=== PATIENT | female | born 2000 | race Caucasian/White ===

== ENCOUNTER 2021-05-09 04:30 | Emergency (ER) | payer BC, MEDICAID ==
[~2021-05-09] VITALS: Ht 157.5 cm; Wt 77.2 kg
[2021-05-09 04:38] VITALS: BP 155/85
--- NOTE | 2021-05-09 04:59 | PHYS DOC ---
Past Medical History Past Medical History: No Pertinent History Past Surgical History: Other Additional Past Surgical Histo: dental Smoking Status: Never Smoker Alcohol Use: None Drug Use: None General Adult EDM: Chief Complaint: SHOULDER INJURY HPI: HPI: Patient is a 20 year old female who present to ER due to right shoulder pain. Patient says he was at picking up her 35 pounds nephew out of a car seat today, heard a pop on her right shoulder, having pain there since. Patient denies any previous injury of her right shoulder. Patient denies any numbness or weakness in her right upper extremity. Patient complains of pain in her right shoulder with movement. Review of Systems: Review of Systems: Constitutional: Denies fever or chills. [] Eyes: Denies change in visual acuity. [] HENT: Denies nasal congestion or sore throat. [] Respiratory: Denies cough or shortness of breath. [] Cardiovascular: Denies chest pain or edema. [] GI: Denies abdominal pain, nausea, vomiting, bloody stools or diarrhea. [] : Denies dysuria. [] Musculoskeletal: Positive for right shoulder pain Integument: Denies rash. [] Neurologic: Denies headache, focal weakness or sensory changes. [] Endocrine: Denies polyuria or polydipsia. [] Lymphatic: Denies swollen glands. [] Psychiatric: Denies depression or anxiety. [] Heart Score: C/O Chest Pain: N/A Risk Factors: Risk Factors: DM, Current or recent (<one month) smoker, HTN, HLP, family hist ory of CAD, obesity. Risk Scores: Score 0 - 3: 2.5% MACE over next 6 weeks - Discharge Home Score 4 - 6: 20.3% MACE over next 6 weeks - Admit for Clinical Observation Score 7 - 10: 72.7% MACE over next 6 weeks - Early Invasive Strategies Allergies: Allergies: Allergies Coded Allergies Type Severity Reaction Last Updated Verified No Known Drug Allergies 01/29/14 No Physical Exam: PE: Constitutional: Well developed, well nourished, no acute distress, non-toxic appearance. [] HENT: Normocephalic, atraumatic, bilateral external ears normal, oropharynx moist, no oral exudates, nose normal. [] Eyes: PERRLA, EOMI, conjunctiva normal, no discharge. [] Neck: Normal range of motion, no tenderness, supple, no stridor. [] Cardiovascular:Heart rate regular rhythm, no murmur [] Lungs & Thorax: Bilateral breath sounds clear to auscultation [] Abdomen: Bowel sounds normal, soft, no tenderness, no masses, no pulsatile masses. [] Skin: Warm, dry, no erythema, no rash. [] Back: No tenderness, no CVA tenderness. [] Extremities: Right shoulder with full range of motion but tender to palpation [] Neurologic: Alert and oriented X 3, normal motor function, normal sensory funct ion, no focal deficits noted. [] Psychologic: Affect normal, judgement normal, mood normal. [] Current Patient Data: Vital Signs: Vital Signs Date Time Temp Pulse Resp B/P (MAP) Pulse Ox O2 Delivery O2 Flow Rate FiO2 05/09/21 04:38 97.8 92 20 155/85 (108) 96 Room Air 97.8 EKG: EKG: [] Radiology/Procedures: Radiology/Procedures: [] Course & Med Decision Making: Course & Med Decision Making Pertinent Labs and Imaging studies reviewed. (See chart for details) [] Dragon Disclaimer: Zhui Xin Disclaimer: This electronic medical record was generated, in whole or in part, using a voice recognition dictation system. Departure Departure Impression: Primary Impression: Sprain of shoulder, right Disposition: 01 HOME / SELF CARE / HOMELESS Condition: STABLE Referrals: AJIT SUGGS MD (PCP) Follow up with your doctor for outpatient MRI of your right shoulder next week if you continue to have pain. Patient Instructions: Shoulder Sprain Additional Instructions: Thank you for visiting our Emergency Department. We appreciate you trusting us with your care. If any additional problems come up don't hesitate to return to visit us. Please follow up with your primary care provider so they can plan additional care if needed and know about the problem that you had. If symptoms worsen come back to the Emergency Department. Any concerning symptoms that start such as chest pain, shortness of air, weakness or numbness on one side of the body, running high fevers or any other concerning symptoms return to the ER. Scripts Ibuprofen (IBUPROFEN) 800 Mg Tablet 800 MG PO PRN Q6HRS PRN for PAIN MDD 20, #30 TAB Prov: SUDHIR LEW DO 05/09/21 SUDHIR LEW DO May 09, 2021 04:59
[2021-05-09] MEDS ORDERED: IBUP-1060 PO (05:24)
--- NOTE | 2021-05-09 05:28 | RAD ---
XR SHOULDER_RIGHT 2+ VIEWS DATE: 05/09/2021 5:08 AM INDICATION: RIGHT SHOULDER INJURED COMPARISON: None. FINDINGS: Bones: There is no evidence of acute fracture or dislocation. Joints: The joint spaces are normal. The acromiohumeral distance is not narrowed. Miscellaneous: No abnormal soft tissue calcifications in the shoulder. IMPRESSION: No evidence of acute fracture. Electronically signed by: Shakir Florez MD (05/09/2021 5:26 AM) IVETTE
== END 2021-05-09 05:33 | disposition home or self-care (01) ==
LOC: ER 04:30
DX: S43.401A Unspecified sprain of right shoulder joint, initial encounter (principal); X50.9XXA Other and unspecified overexertion or strenuous movements or postures, initial encounter; Y93.89 Activity, other specified; Y92.89 Other specified places as the place of occurrence of the external cause; Y99.8 Other external cause status
CPT/HCPCS: 73030; 99283

== ENCOUNTER 2021-07-04 02:11 | Emergency (ER) | payer BC, MEDICAID ==
[~2021-07-04] VITALS: Ht 157.5 cm; Wt 77.3 kg
[~2021-07-04 02:11] MED LIST: IBUP-1060 PO
--- NOTE | 2021-07-04 02:30 | PHYS DOC ---
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, denies any headache or neck stiffness/photophobia, cough not productive, she is unfortunately not vaccinated to coronavirus 20, no known history of cardiac disease or history of thromboembolism Review of Systems: Review of Systems: General: positive for fevers, no chills Eyes: no blurred vision, no diplopia Skin: no rashes Neck: no swelling, no neck stiffness, no neck pain Heme: no bleeding, no lymph node enlargement Ear/Nose/Throat: No sore throat, no runny nose, no hearing loss, no difficulty swallowing Cardiovascular: no Chest pain, no palpitations Respiratory: No dyspnea, + cough, no hemoptysis Gastrointestinal: No abdominal pain, + nausea, + vomiting, + diarrhea, no blood in stool Genitourinary: no dysuria, no hematuria Musculoskeletal: no back pain, no leg pain, no arm pain, no arthralgia Neurologic: no headaches, no dizziness, no focal numbness/tingling, no focal weakness Psych: no depression, no anxiety, no SI/HI *All review of systems are negative other than what is noted above Heart Score: C/O Chest Pain: No Risk Factors: Risk Factors: DM, Current or recent (<one month) smoker, HTN, HLP, family h istory of CAD, obesity. Risk Scores: Score 0 - 3: 2.5% MACE over next 6 weeks - Discharge Home Score 4 - 6: 20.3% MACE over next 6 weeks - Admit for Clinical Observation Score 7 - 10: 72.7% MACE over next 6 weeks - Early Invasive Strategies Current Medications: Current Medications Medications (Trade) Dose Ordered Sig/Tylor Start Time Stop Time Status Last Admin Dose Admin Dexamethasone (Decadron) 10 mg 1X ONCE 07/04/21 02:30 07/04/21 02:31 UNV Ibuprofen (Motrin) 800 mg 1X ONCE 07/04/21 02:30 07/04/21 02:31 UNV Ondansetron HCl (Zofran Odt) 4 mg 1X ONCE 07/04/21 02:30 07/04/21 02:31 UNV Allergies: Allergies: Allergies Coded Allergies Type Severity Reaction Last Updated Verified No Known Drug Allergies 01/29/14 No Physical Exam: PE: Gen-well appearing, no acute distress Head: Normocephalic/Atraumatic ENT: atraumatic, PERRLA, EOMI, oropharynx clear Neck: supple, full ROM/strength, no JVD, no nuchal rigidity Lungs: no distress, speaks in full sentences, Clear to auscultation bilaterally CV: reg rate, rhythm, no murmus/rubs/gallops, peripheral pulses equal in all extremities Abdomen: soft/nontender, no guarding/rebound tenderness, no rigidity, non distended, normoactive bowel sounds Musculoskeletal: full ROM/strength in all extremities, atraumatic, no swelling Back: full range of motion/strength Skin: intact, no rashes Lymph: no gross JHONATHAN Neuro: alert and oriented x 4, CN 2-12 grossly intact, Motor strength is 5/5 in all extremities, no focal sensory deficits, no focal ataxia, ambulatory with steady gait Psych: normal mood/affect EKG: EKG: [] Radiology/Procedures: Radiology/Procedures: [] Course & Med Decision Making: Course & Med Decision Making Pertinent Labs and Imaging studies reviewed. (See chart for details) [] 20 yo female presented to the ED with symptomatology and exam findings the patient for COVID-19 especially because she is not vaccinated, she is otherwise well-appearing, afebrile, nontoxic-appearing and has normal oxygenation, neurologically intact, no indication for ED work-up or imaging but I do a rapid Covid test and give her some medicine for symptom relief Reevaluation 4:04 AM: The patient's x-ray and Covid swabs are negative, I added on a PCR test that have a high clinical index of suspicion but I believe she stable for discharge at this time Patient was seen in the ED for cough and symptoms suspicious for COVID-19 in fection there is no apparent evidence of any emergency medical pathology at this time, patient was advised follow-up with their primary care provider /physician in the next 24-48 hours and to return to the ED before then if any new or worsening / concerning symptoms had developed. All questions and concerns were addressed at time of disposition Tasneem Disclaimer: Tasneem Disclaimer: This electronic medical record was generated, in whole or in part, using a voice recognition dictation system. Departure Departure Impression: Primary Impression: Viral syndrome Disposition: HOME / SELF CARE / HOMELESS Condition: IMPROVED Referrals: NO PCP (PCP) MALINDA METZGER MD 2 days Patient Instructions: Viral Syndrome Additional Instructions: Your rapid test was negative for Covid but I am highly suspicious for COVID-19 so I did send a PCR test and this should result within the next 24 hours, in that timeframe I do recommend that you isolate and not go to work so I want you a work note, please take the steroid pack and use the breathing medicine that I am prescribing you, follow-up with your primary care doctor in the next 48 hours as needed and please return to the ER at any time before then if any new or worsening/concerning symptoms develop Scripts Ondansetron (ONDANSETRON ODT) 4 Mg Tab.rapdis 1 TAB PO PRN Q6-8HRS, #20 TAB Prov: ZAC ORNELAS MD 07/04/21 Methylprednisolone (MEDROL) 4 Mg Tab.ds.pk 1 PKG PO UD for inflammation, #1 PKG Prov: ZAC ORNELAS MD 07/04/21 Albuterol Sulfate (VENTOLIN HFA INHALER) 18 Gm Hfa.aer.ad 2 PUFF INH QID for FOR ASTHMA, #1 INHALER 0 Refills Prov: ZAC ORNELAS MD 07/04/21 ZAC ORNELAS MD Jul 04, 2021 02:30
[2021-07-04] MEDS ORDERED: IBUPROFEN 400 MG TABLET. PO ONE (03:00)
[2021-07-04] MEDS ORDERED: ONDANSETRON ODT 4 MG TAB.RAPDIS. PO ONE (03:00)
[2021-07-04] MEDS ORDERED: DEXAMETHASONE 4 MG TABLET PO ONE (03:00)
--- NOTE | 2021-07-04 03:30 | RAD ---
XR CHEST 1V Clinical Indication: Reason: cough / Spl. Instructions: / History: Comparison: Two-view chest December 26, 2007. Findings: The cardiomediastinal silhouette is normal. Lungs are clear. There is no pneumothorax. No pleural eff usion is appreciated. No acute bone abnormality. IMPRESSION: No acute cardiopulmonary process. Electronically signed by: Arley Leslie MD (07/04/2021 3:28 AM) [facility]ALor[facility]
[2021-07-04 03:49] LABS: INFLUENZA A PATIENT NEGATIVE (NEGATIVE); INFLUENZA B PATIENT NEGATIVE (NEGATIVE)
[2021-07-04 04:00] VITALS: BP 110/67
[2021-07-04] MEDS ORDERED: ONDA4TAB12 PO (04:08)
[2021-07-04] MEDS ORDERED: VENTOLIN HFA18 GM INH (04:08)
[2021-07-04] MEDS ORDERED: METH4TAB2 PO (04:08)
--- NOTE | 2021-07-06 11:47 | NUR ---
IP: Informed mother of negative covid test. Pt not available. She verbalized understanding.
== END 2021-07-04 04:17 | disposition home or self-care (01) ==
LOC: ER 02:11
DX: B34.9 Viral infection, unspecified (principal); Z20.822 Contact with and (suspected) exposure to COVID-19
CPT/HCPCS: 71045; 87426; 87804; 99284; U0003; U0005